=== PATIENT | female | born 1975 | race American Indian/Alaskan Native ===

== ENCOUNTER 2016-04-30 11:54 | Emergency (ER) | payer MEDICAID ==
[2016-04-30 12:31] VITALS: BP 134/79
== END 2016-04-30 17:51 | disposition left against medical advice (07) ==
LOC: ED 11:54
DX: R21 Rash and other nonspecific skin eruption (principal); Z53.21 Procedure and treatment not carried out due to patient leaving prior to being seen by health care provider

== ENCOUNTER 2016-05-11 09:48 | Emergency (ER) | payer MEDICAID ==
--- NOTE | 2016-05-11 12:18 | Emergency Department Report ---
ED Fall HPI - General Chief Complaint: Fall Stated Complaint: FALL/ LT KNEE PAIN/RT UPPER ABD PAIN DUE TO FALL Time Seen by Provider: 05/11/16 11:50 Source: patient Mode of arrival: Ambulatory - History of Present Illness Initial Comments: Patient here reported that she fell at home last night. She said that she was moving a night stand up stairs and tripped and fell on the nightstand. Complaining the pain in her right anterior chest area. Also complaining the left knee pain. Pain is 6-7 out of 10. Denies any head injury or loss of consciousness. Denies any back pain or abdominal pain. No [id number] medication taken. MD Complaint: fall -: Last night Fall From: from height (distance) (2 steps) When Fall Occurred: # days [employer] (16 hrs) Fall Witnessed: no Place Fall Occurred: home Loss of Consciousness: none Prolonged Down Time?: no Symptoms Prior to Fall: none Location: chest (distally at rib cage, rt) Location - Extremities: Right: Knee (Pain) Severity: moderate Severity scale (0 -10): 7 Quality: aching Context: tripped/slipped Associated Symptoms: denies: headache, neck pain, numbness, weakness, chest paint, shortness of breath, abdominal pain, hematuria, unable to walk, lightheaded, vertigo, confusion - Related Data Previous Rx's Medication Instructions Recorded Last Taken Type HYDROcodone/APAP 5-325 [Winslow 1 each PO Q6HR PRN #12 tablet 05/11/16 Unknown Rx 5/325] Ibuprofen [Motrin] 600 mg PO Q8H PRN #15 tablet 05/11/16 Unknown Rx Allergies Allergy/AdvReac Type Severity Reaction Status Date / Time No Known Allergies Allergy Unverified 04/30/16 12:26 ED Review of Systems ROS: Stated complaint: FALL/ LT KNEE PAIN/RT UPPER ABD PAIN DUE TO FALL Other details as noted in HPI Comment: All other systems reviewed and negative Constitutional: denies: chills, fever Respiratory: no symptoms reported Cardiovascular: denies: chest pain, palpitations, edema, syncope Gastrointestinal: denies: abdominal pain, nausea, vomiting Musculoskeletal: arthralgia, other (Pain rt distal rib cage). denies: back pain , joint swelling Skin: denies: rash Neurological: denies: headache, numbness, paresthesias, abnormal gait, vertigo ED Past Medical Hx - Past Medical History Previous Medical History?: No - Surgical History Past Surgical History?: Yes Additional Surgical History: Hernia repair x 3, x 3, Right foot surgery - Family History Family history: hypertension - Social History Smoking Status: Never Smoker Substance Use Type: Alcohol, Prescribed - Medications Home Medications: Home Medications Medication Instructions Recorded Confirmed Last Taken Type HYDROcodone/APAP 5-325 [Winslow 1 each PO Q6HR PRN #12 tablet 05/11/16 Unknown Rx 5/325] Ibuprofen [Motrin] 600 mg PO Q8H PRN #15 tablet 05/11/16 Unknown Rx ED Physical Exam - General Limitations: No Limitations General appearance: alert, in no apparent distress - Head Head exam: Present: atraumatic, normocephalic, normal inspection - Eye Eye exam: Present: normal appearance, PERRL, EOMI. Absent: periorbital swelling , periorbital tenderness Pupils: Present: normal accommodation - ENT ENT exam: Present: normal exam - Neck Neck exam: Present: normal inspection, full ROM, other (supple). Absent: tenderness, meningismus, lymphadenopathy - Expanded Neck Exam Expanded Neck exam: Absent: tenderness, midline deformity, anterior neck swelling, tracheal deviation - Respiratory Respiratory exam: Present: normal lung sounds bilaterally. Absent: respiratory distress, chest wall tenderness - Cardiovascular Cardiovascular Exam: Present: regular rate, normal rhythm, normal heart sounds - GI/Abdominal GI/Abdominal exam: Present: soft, normal bowel sounds. Absent: distended, tenderness, guarding, rebound, rigid - Extremities Exam Extremities exam: Present: normal inspection, full ROM, tenderness (left anterior knee), normal capillary refill. Absent: pedal edema, joint swelling, calf tenderness - Expanded Lower Extremity Exam Left Hip exam: Present: normal inspection, full ROM, pelvic stability. Absent: tenderness, swelling, abrasion, laceration, ecchymosis, deformity, crepidus, dislocation, erythema, external rotation, internal rotation, shortening Upper Leg exam: Present: normal inspection, full ROM. Absent: tenderness, swelling, abrasion, laceration, ecchymosis, deformity, crepidus, dislocation, erythema Knee exam: Present: normal inspection, full ROM, tenderness (tender to palpate left anterior knee), full knee extension. Absent: swelling, abrasion, laceration, ecchymosis, deformity, crepidus, dislocation, erythema, effusion, pain w/ pronation/supination, posterior draw sign, pain/laxity with valgus, pain /laxity with varus Lower Leg exam: Present: normal inspection, full ROM. Absent: tenderness, swelling, abrasion, laceration, ecchymosis, deformity, crepidus, dislocation, erythema, palpable cord, Funmi's sign Ankle exam: Present: normal inspection, full ROM. Absent: tenderness, swelling , abrasion, laceration, ecchymosis, deformity, crepidus, dislocation, erythema Foot/Toe exam: Present: normal inspection, full ROM. Absent: tenderness, swelling, abrasion, laceration, ecchymosis, deformity, crepidus, dislocation, erythema, amputation, puncture wound, foreign body, calcaneal tenderness, tenderness at base of 5th metatarsal, nail avulsion, subungual hematoma Neuro vascular tendon exam: Present: no vascular compromise. Absent: pulse deficit, abnormal cap refill, motor deficit, sensory deficit, tendon deficit, extremity cold to touch, pallor, abnormal 2-point discrimination, decreased fine /light touch, foot drop, peroneal nerve deficit, significant pain with passive ROM of distal joint Gait: Positive: observed and normal - Back Exam Back exam: Present: normal inspection, full ROM. Absent: tenderness, CVA tenderness (R), CVA tenderness (L), muscle spasm, paraspinal tenderness, vertebral tenderness, rash noted - Neurological Exam Neurological exam: Present: alert, oriented X3, normal gait, reflexes normal. Absent: motor sensory deficit - Psychiatric Psychiatric exam: Present: normal affect, normal mood - Skin Skin exam: Present: warm, dry, intact, normal color. Absent: rash ED Course Vital Signs 05/11/16 10:39 Temperature 97.9 F Pulse Rate 74 Respiratory 18 Rate Blood Pressure 124/82 O2 Sat by Pulse 100 Oximetry - Reevaluation(s) Reevaluation #1: 05/11/16 12:38 Patient given Motrin 800 mg in emergency room. She is awaiting x-rays. ED Medical Decision Making - Radiology Data Radiology results: image reviewed interpreted by me: X-ray of right ribs with PA chest revealed no acute fracture or dislocation and no pneumothorax. Ribs appear normal. X-ray of left knee reveals no acute fracture or dislocation. - Medical Decision Making ED course: I Discussed the patient that her x-rays were negative and I'll manage her pain with pain medication. Also explained to her that she has to cough and take deep breaths every 3-4 hours to prevent her lab from collapsing. Patient was understanding of discharge instruction discharged home with prescription for Motrin and Winslow.. Critical care attestation.: If time is entered above; I have spent that time in minutes in the direct care of this critically ill patient, excluding procedure time. ED Disposition Clinical Impression: Rib pain on right side Accidental fall Qualifiers: Encounter type: initial encounter Qualified Code(s): W19.XXXA - Unspecified fall, initial encounter Knee pain, left Qualifiers: Chronicity: acute Qualified Code(s): M25.562 - Pain in left knee Disposition: DISCHARGED TO HOME OR SELFCARE Is pt being admited?: No Does the pt Need Aspirin: No Condition: Stable Instructions: Arthralgia (ED), Fall Prevention (ED), Thoracic Pain (ED) Additional Instructions: Please breathing or cough every 3-4 hours. Do Not take narcotics while driving or operating heavy machinery as narcotic will cause drowsiness. Prescriptions: HYDROcodone/APAP 5-325 [Winslow 5/325] 1 each PO Q6HR PRN #12 tablet PRN Reason: Pain Ibuprofen [Motrin] 600 mg PO Q8H PRN #15 tablet PRN Reason: Pain Referrals: PRIMARY CARE, [Primary Care Provider] - 2-3 Days [facility] [Outside] - 2-3 Days Forms: Work/School Release Form(ED), Accompanied Note
[2016-05-11] MEDS ORDERED: MOTRIN PO ONE (12:20)
[2016-05-11 14:01] VITALS: BP 126/78
--- NOTE | 2016-05-11 14:19 | XRay Report ---
Left knee 3 views: History: Fall with left knee pain. Findings: No bony or articular abnormality. No fracture or dislocation. Suspicion of minimal joint effusion. Impression: No evidence of acute fracture.
--- NOTE | 2016-05-11 14:20 | XRay Report ---
Left ribs 2 views: History: Fall with left rib injury. Findings: No fracture or lytic lesion. Impression: No evidence of acute fracture.
== END 2016-05-11 14:00 | disposition home or self-care (01) ==
LOC: ED 09:48
DX: R07.81 Pleurodynia (principal); M25.562 Pain in left knee; W19.XXXA Unspecified fall, initial encounter; Y93.89 Activity, other specified; Y99.8 Other external cause status; Y92.009 Unspecified place in unspecified non-institutional (private) residence as the place of occurrence of the external cause

== ENCOUNTER 2017-05-19 18:49 | Emergency (ER) | payer MEDICAID, OTHER ==
[2017-05-19 20:44] LABS: Hemoglobin 11.9 gm/dl (10.1-14.3); Mean Corpuscular HGB Conc 32 % (30-34); Mean Corpuscular Volume 72 fl (79-97); Platelet Count 207 K/mm3 (140-440); Red Blood Count 5.14 M/mm3 (3.65-5.03); Red Cell Distribution Width 15.1 % (13.2-15.2)
[2017-05-19 20:45] LABS: Mean Corpuscular Hemoglobin 23 pg (28-32)
[2017-05-19 20:56] LABS: BUN/Creatinine Ratio 16; Blood Urea Nitrogen 8 mg/dL (7-17); Calcium 8.8 mg/dL (8.4-10.2); Hemolysis Index 5
--- NOTE | 2017-05-19 21:01 | Cat Scan Report ---
FINAL REPORT EXAM: CT HEAD/BRAIN WO CON HISTORY: syncope and severe headache TECHNIQUE: Standard unenhanced CT of the head at 5.0 millimeter axial increments. PRIORS: None. FINDINGS: The ventricular system is normal in size and configuration. There is no evidence for parenchymal volume loss. There is no evidence for mass lesion, mass effect, midline shift, acute intracranial hemorrhage, or acute ischemia/ infarction. Visualized paranasal sinuses demonstrates extensive mucosal thickening throughout the maxillary, sphenoid, and ethmoid sinuses suggesting chronic sinusitis. IMPRESSION: chronic pansinusitis. No acute intracranial process noted.
[2017-05-19 22:42] LABS: Bacteria,Urine 3+ /HPF (Negative); Bilirubin,Urine NEG (Negative); Blood,Urine NEG (Negative); Color,Urine Yellow (Yellow); Mucus,Urine FEW /HPF
[2017-05-19] MEDS ORDERED: TYLENOL ONE (23:35)
[2017-05-19] MEDS ORDERED: TYLENOL PO ONE (23:36)
--- NOTE | 2017-05-20 02:38 | Emergency Department Report ---
ED Syncope HPI - General Chief Complaint: Syncope Stated Complaint: HEADACHE WITH N/V Time Seen by Provider: 05/20/17 02:11 Source: patient, family Exam Limitations: no limitations - History of Present Illness Initial Comments: Patient reports that she had near syncopal episode at home today. Her family member reported the patient was kristina in bed and then she complained of feeling dizzy but she actually did not fall. She says she was feeling dizzy when she stood up. She says she had severe headache with nausea and vomiting. Patient states that she has a history of migraine and she is also stating that she is having chest pain with shortness of breath when this happened initially this morning but she hasn't had any shortness of breath since she came to the emergency room. Patient denies any history of blood clot in her family or personally. Denies any recent long distant travel by airplane and her car for more than 3 hours. Denies any swelling to her legs. Denies being on control. Denies any recent history of treatment for cancer or history of cancer. Denies any recent convalescent. Denies any recent history of splinting or casting to her extremities. She reports that chest pain is at 7 out of 10 and headache was a 10 out of 10. Pain achy pain to chest located to the mid chest and headache is located to the frontal head. She also reports some cold symptoms. Denies any cardiac related history of chest pain. Nothing makes pain better and nothing makes it worse. No medication taken prior to coming to the emergency room. Denies any abdominal pain. Denies any back pain or neck pain or stiffness. Denies any fever or chills. Denies any urinary burning frequency or urgency. Patient has a history of bilateral tubal ligation 2 which she said she got on the first time that she got her TMs tied. Last menstrual period was 04/05/2016 and she says she is irregular. Timing/Prior Episodes: no prior history, single episode today Precipitating Factors: Positive: lightheadedness, nausea, pain. Negative: blurred vision, confusion, diaphoresis, injury, recent head trauma, rapid heart beat Context: sitting Episode Description: family report that patient was in bed when she felt lightheaded/no fainting Current Symptoms: chest pain, dizziness, headache, lightheadedness, nausea. denies: blurred vision, diaphoresis, injury, loss of bladder control, loss of bowel control, motionless, pale, shallow/rapid breathing, weak/absent pulse, weakness - Related Data Allergies/Adverse Reactions: Allergies No Known Allergies Allergy (Verified 05/19/17 23:40) Home Medications: Ambulatory Orders HYDROcodone/APAP 5-325 [[place] 5/325] 1 each PO Q6HR PRN #12 tablet 05/11/16 Cetirizine HCl [ZyrTEC] 10 mg PO QAM 14 Days #14 capsule 05/20/17 Fluticasone [Flonase] 1 spray NS QDAY 14 Days #1 bottle 05/20/17 Ibuprofen [Motrin 600 MG tab] 600 mg PO Q8H PRN #15 tablet 05/20/17 Levofloxacin [Levaquin] 750 mg PO QDAY 9 Days #9 tablet 05/20/17 Ondansetron [Zofran Odt] 4 mg PO Q8H PRN #15 tab.rapdis 05/20/17 ED Review of Systems ROS: Stated complaint: HEADACHE WITH N/V Other details as noted in HPI Comment: All other systems reviewed and negative Constitutional: no symptoms reported ENT: congestion. denies: ear pain, throat pain, dental pain, hearing loss, epistaxis Respiratory: no symptoms reported Cardiovascular: chest pain, other (lightheaded and near-syncope). denies: palpitations, dyspnea on exertion, orthopnea, edema, syncope, paroxysmal nocturnal dyspnea Gastrointestinal: nausea, vomiting. denies: abdominal pain, diarrhea, constipation, hematemesis, melena, hematochezia Genitourinary: denies: urgency, dysuria, frequency, hematuria, discharge Musculoskeletal: denies: back pain, joint swelling, arthralgia, myalgia Skin: denies: rash Neurological: headache, other (dizziness). denies: weakness, numbness, paresthesias, confusion, abnormal gait ED Past Medical Hx - Past Medical History Previous Medical History?: Yes Hx Headaches / Migraines: Yes Additional medical history: tubiligation x2 - Surgical History Past Surgical History?: Yes Additional Surgical History: Hernia repair x 3, x 3, Right foot surgery - Family History Family history: hypertension - Social History Smoking Status: Never Smoker Substance Use Type: None - Medications Home Medications: Home Medications Medication Instructions Recorded Confirmed Last Taken Type HYDROcodone/APAP 5-325 [[place] 1 each PO Q6HR PRN #12 tablet 05/11/16 Unknown Rx 5/325] Cetirizine HCl [ZyrTEC] 10 mg PO QAM 14 Days #14 capsule 05/20/17 Unknown Rx Fluticasone [Flonase] 1 spray NS QDAY 14 Days #1 bottle 05/20/17 Unknown Rx Ibuprofen [Motrin 600 MG tab] 600 mg PO Q8H PRN #15 tablet 05/20/17 Unknown Rx Levofloxacin [Levaquin] 750 mg PO QDAY 9 Days #9 tablet 05/20/17 Unknown Rx Ondansetron [Zofran Odt] 4 mg PO Q8H PRN #15 tab.rapdis 05/20/17 Unknown Rx ED Physical Exam - General Limitations: No Limitations General appearance: alert, in no apparent distress - Head Head exam: Present: atraumatic, normocephalic, normal inspection - Expanded Head Exam Expanded Head exam: Absent: laceration, abrasion, contusion, hematoma, racoon eyes, roberson's sign, general tenderness, tenderness of temporal artery, CSF rhinorrhea , CSF otorrhea - Eye Eye exam: Present: normal appearance, PERRL, EOMI. Absent: conjunctival injection, nystagmus, periorbital swelling, periorbital tenderness Pupils: Present: normal accommodation - ENT ENT exam: Present: normal orophraynx, mucous membranes moist, normal external ear exam, other (lateral frontal and maxillary sinuses tender to palpate). Absent: TM's normal bilaterally (bilateral TM congested without erythema) - Neck Neck exam: Present: normal inspection, full ROM, other (C-spine tenderness). Absent: tenderness, meningismus, lymphadenopathy, thyromegaly - Respiratory Respiratory exam: Present: normal lung sounds bilaterally. Absent: respiratory distress, chest wall tenderness, accessory muscle use - Cardiovascular Cardiovascular Exam: Present: regular rate, normal rhythm, normal heart sounds. Absent: systolic murmur, diastolic murmur - GI/Abdominal GI/Abdominal exam: Present: soft, normal bowel sounds. Absent: distended, tenderness, guarding, rebound, rigid, organomegaly, mass, bruit, pulsatile mass , hernia - Extremities Exam Extremities exam: Present: normal inspection, full ROM, normal capillary refill , other (no clubbing, cyanosis or edema. +2 pulses to all extremities and no neurovascular compromise). Absent: tenderness, pedal edema, joint swelling, calf tenderness - Back Exam Back exam: Present: normal inspection, full ROM, other (ambulates without any difficulties.). Absent: tenderness, CVA tenderness (R), CVA tenderness (L), muscle spasm, paraspinal tenderness, vertebral tenderness, rash noted - Neurological Exam Neurological exam: Present: alert, oriented X3, normal gait, reflexes normal. Absent: motor sensory deficit - Expanded Neurological Exam Expanded Neurological exam: Absent: innattentive, memory loss-remote event, memory loss- recent event, ataxia, receptive aphasia, expressive aphasia, total aphasia, tremor, protecting the airway Patient oriented to: Present: person, place, time Speech: Present: fluid speech Cranial nerves: EOM's Intact: Normal, Gag Reflex: Normal, Tongue Deviation: Normal, Nystagmus: Normal, Facial Sensation: Normal, Facial Palsy with Forehead Movement: Normal, Facial Palsy without Forehead Movement: Normal Cerebellar function: Romberg: Normal Upper motor neuron: Pronator Drift: Normal, Sensory Extinction: Normal Sensory exam: Upper Extremity Light Touch: Normal, Upper Extremity Temperature: Normal, UE 2 Point Discrimination: Normal, Lower Extremity Light Touch: Normal, Lower Extremity Temperature: Normal, LE 2 Point Discrimination: Normal Motor strength exam: RUE: 5, LUE: 5, RLE: 5, LLE: 5 DTR: bicep (R): 2+, bicep (L): 2+, tricep (R): 2+, tricep (L): 2+, knee (R): 2+ , knee (L): 2+, ankle (R): 2+, ankle (L): 2+ Best Eye Response (Chidester): (4) open spontaneously Best Motor Response (Chidester): (6) obeys commands Best Verbal Response (Neymar): (5) oriented Neymar Total: 15 - Psychiatric Psychiatric exam: Present: normal affect, normal mood - Skin Skin exam: Present: warm, dry, intact, normal color. Absent: rash ED Course Vital Signs 05/19/17 05/19/17 20:14 23:37 Temperature 98.9 F Pulse Rate 67 Respiratory 18 18 Rate Blood Pressure 139/93 O2 Sat by Pulse 100 Oximetry Vital Signs 05/19/17 05/19/17 05/20/17 20:14 23:37 04:42 Temperature 98.9 F 98.7 F Pulse Rate 67 56 L Respiratory 18 18 16 Rate Blood Pressure 139/93 Blood Pressure 121/79 [Right] O2 Sat by Pulse 100 100 Oximetry - Reevaluation(s) Reevaluation #1: 05/20/17 02:20 Patient received Tylenol 650 mg in triage area upon arrival to the emergency room. Reevaluation #2: 05/20/17 04:41 She received IV fluid 1 L, Zofran 8 mg IV and Toradol 30 mg IV. Urinalysis positive for nitrites, bacteria and some protein but no ketones. Urine culture sent and pending. Urine test is negative BMP is stable and troponin is normal range. CBC is within normal limits. EKG sinus bradycardia at 48 bpm and patient reports that her heart rate is low at times. She does not have any acute ST findings. CT scan of the head revealed chronic pansinusitis without any acute intracranial processes. Patient is able to ambulate and feels better after IV fluid. She is no longer having lightheadedness, no longer dizzy. She is not having any nausea or vomiting. Chest pain has resolved and she does not have any shortness of breath. ED Medical Decision Making - Lab Data Result diagrams: 05/19/17 20:34 05/19/17 20:34 Lab Results 05/19/17 05/19/17 05/19/17 Range/Units 20:34 20:34 22:07 WBC 9.0 (4.5-11.0) K/mm3 RBC 5.14 H (3.65-5.03) M/mm3 Hgb 11.9 (10.1-14.3) gm/dl Hct 37.0 (30.3-42.9) % MCV 72 L (79-97) fl MCH 23 L (28-32) pg MCHC 32 (30-34) % RDW 15.1 (13.2-15.2) % Plt Count 207 (140-440) K/mm3 Sodium 139 (137-145) mmol/L Potassium 3.7 (3.6-5.0) mmol/L Chloride 101.0 (98-107) mmol/L Carbon Dioxide 26 (22-30) mmol/L Anion Gap 16 mmol/L BUN 8 (7-17) mg/dL Creatinine 0.5 L (0.7-1.2) mg/dL Estimated GFR > 60 ml/min BUN/Creatinine Ratio 16 % Glucose 98 (65-100) mg/dL Calcium 8.8 (8.4-10.2) mg/dL Troponin T < 0.010 (0.00-0.029) ng/mL Urine Color Yellow (Yellow) Urine Turbidity Clear (Clear) Urine pH 5.0 (5.0-7.0) Ur Specific [place] 1.026 (1.003-1.030) Urine Protein 30 mg/dl (Negative) mg/dL Urine Glucose (UA) Neg (Negative) mg/dL Urine Ketones Neg (Negative) mg/dL Urine Blood Neg (Negative) Urine Nitrite Pos (Negative) Urine Bilirubin Neg (Negative) Urine Urobilinogen 4.0 (<2.0) mg/dL Ur Leukocyte Esterase Neg (Negative) Urine WBC (Auto) 4.0 (0.0-6.0) /HPF Urine RBC (Auto) 3.0 (0.0-6.0) /HPF U Epithel Cells (Auto) 1.0 (0-13.0) /HPF Urine Bacteria (Auto) 3+ (Negative) /HPF Urine Mucus Few /HPF Urine HCG, Qual (Negative) 05/20/17 Range/Units Unknown WBC (4.5-11.0) K/mm3 RBC (3.65-5.03) M/mm3 Hgb (10.1-14.3) gm/dl Hct (30.3-42.9) % MCV (79-97) fl MCH (28-32) pg MCHC (30-34) % RDW (13.2-15.2) % Plt Count (140-440) K/mm3 Sodium (137-145) mmol/L Potassium (3.6-5.0) mmol/L Chloride (98-107) mmol/L Carbon Dioxide (22-30) mmol/L Anion Gap mmol/L BUN (7-17) mg/dL Creatinine (0.7-1.2) mg/dL Estimated GFR ml/min BUN/Creatinine Ratio % Glucose (65-100) mg/dL Calcium (8.4-10.2) mg/dL Troponin T (0.00-0.029) ng/mL Urine Color (Yellow) Urine Turbidity (Clear) Urine pH (5.0-7.0) Ur Specific [place] (1.003-1.030) Urine Protein (Negative) mg/dL Urine Glucose (UA) (Negative) mg/dL Urine Ketones (Negative) mg/dL Urine Blood (Negative) Urine Nitrite (Negative) Urine Bilirubin (Negative) Urine Urobilinogen (<2.0) mg/dL Ur Leukocyte Esterase (Negative) Urine WBC (Auto) (0.0-6.0) /HPF Urine RBC (Auto) (0.0-6.0) /HPF U Epithel Cells (Auto) (0-13.0) /HPF Urine Bacteria (Auto) (Negative) /HPF Urine Mucus /HPF Urine HCG, Qual Negative (Negative) Urine culture pending - EKG Data EKG shows normal: sinus rhythm Rate: bradycardia (48 bpm) - EKG Data Interpretation: no acute changes - Radiology Data Radiology results: report reviewed CT scan of the head reveals no acute intracranial findings but findings were chronic pansinusitis. Patient with extensive mucosal thickening throughout the maxillary, sphenoid and ethmoid sinuses suggested chronic sinusitis - Medical Decision Making Collaborating with Dr. Eduardo and patient presentation and clinical findings , diagnostic and laboratory findings. He agreed with treatment plan ED course: She is here with her family reports lightheadedness while laying in bed. It was documented on triage note the patient had syncopal episode but patient denies this. She said she got up and she felt lightheaded and felt faintish but she had not fainted. She reports headache frontally, nausea and vomiting. Brief period of shortness of breath at home and chest pain. Laboratory findings included CMP, BMP, troponin were all within normal limits. Urinalysis revealed patient with positive nitrite, some protein and positive bacteria. Patient with urinary tract infection. CT scan also showed a patient without any acute intracranial findings but patient with extensive mucosal coastal thickness and in her sinuses and suggests pansinusitis. Urine test is negative. EKG reveals sinus bradycardia at 48 bpm without any acute ST abnormality. Patient heart rate score is low,PERC rule and wells criteria suggest no need for further diagnostic studies due to severe risk for pulmonary embolism. Patient physical findings for tenderness to palpate her sinuses, nasal congestion and bilateral TM congestion. She has no urinary symptoms with urinary tract infection. I discussed laboratory findings and CT findings the patient along with diagnosis and treatment plan and she voiced understanding. Patient was given Tylenol 650 mg in triage area for headache and chest pain. She was further given a liter of IV fluid normal saline, Zofran 8 mg IV, Toradol 30 mg IV. Patient is able to ambulate without any difficulties. She is without any chest pain, shortness of breath, nausea or vomiting or headache. She says she is feeling better. Patient given her first dose of Levaquin to cover sinus infection and urinary tract infection. I discussed with her to start next dose tomorrow morning which is 05/21/2017. Patient primary care physician is Dr. Pace she says she has an appointment with on 06/01/2017 and I suggested to her to call in the morning to get an earlier appointment for follow-up visit. Patient discharged home with prescription for Levaquin, Zyrtec, Flonase, Zofran and Motrin. Her vital signs are stable and she is afebrile. Critical care attestation.: If time is entered above; I have spent that time in minutes in the direct care of this critically ill patient, excluding procedure time. ED Disposition Clinical Impression: Acute cystitis without hematuria, Dizziness, Atypical chest pain Pansinusitis Qualifiers: Chronicity: unspecified Qualified Code(s): J32.4 - Chronic pansinusitis Headache Qualifiers: Headache type: unspecified Headache chronicity pattern: acute headache Intractability: not intractable Qualified Code(s): R51 - Headache Nausea and vomiting Qualifiers: Vomiting type: unspecified Vomiting Intractability: non-intractable Qualified Code(s): R11.2 - Nausea with vomiting, unspecified Disposition: DC-01 TO HOME OR SELFCARE Is pt being admited?: No Does the pt Need Aspirin: No Condition: Stable Instructions: Chest Pain (ED), Sinusitis (ED), Dizziness (ED), Acute Nausea and Vomiting (ED), Near Syncope (ED), Acute Headache (ED), Urinary Tract Infection in Women (ED) Additional Instructions: Please follow up with Dr. Pace your primary care physician call this morning to schedule an appointment. Please see neurology referral for migraine headaches. Follow up with [facility] for atypical chest pain. See details on referral and discharge instruction paperwork Takes Zyrtec and Flonase for congestion Take Levaquin to start on 05/21/2017 for urinary tract infection and sinus infection. He received her first dose on 05/20/2017. Takes Zofran for nausea and/or vomiting Take Motrin for headache. Please make sure that you drink plenty of fluids If any a few symptoms recur, return to the emergency room otherwise follow-up via primary care physician Prescriptions: Cetirizine HCl [ZyrTEC] 10 mg PO QAM 14 Days #14 capsule Fluticasone [Flonase] 1 spray NS QDAY 14 Days #1 bottle Ibuprofen [Motrin 600 MG tab] 600 mg PO Q8H PRN #15 tablet PRN Reason: Pain Levofloxacin [Levaquin] 750 mg PO QDAY 9 Days #9 tablet Ondansetron [Zofran Odt] 4 mg PO Q8H PRN #15 tab.rapdis PRN Reason: Nausea And Vomiting Referrals: PRIMARY CARE, [Primary Care Provider] - 05/21/17 DONNA PINEDA MD [Staff Physician] - 2-3 Days RAQUEL DAVIDSON MD [Staff Physician] - 2-3 Days Forms: Accompanied Note, Work/School Release Form(ED)
[2017-05-20] MEDS ORDERED: TORADOL IV ONE (03:30)
[2017-05-20] MEDS ORDERED: ZOFRAN IV ONE (03:30)
[2017-05-20] MEDS ORDERED: NACL 0.9% 1000 ML 1,000 ML IV ONE (03:30)
[2017-05-20 03:59] LABS: HCG Qualitative,Urine Negative (Negative)
[2017-05-20] MEDS ORDERED: LEVAQUIN PO ONE (04:02)
[2017-05-20 04:43] VITALS: BP 121/79
== END 2017-05-20 05:25 | disposition home or self-care (01) ==
LOC: ED 18:49
DX: R42 Dizziness and giddiness (principal); J32.4 Chronic pansinusitis; N30.00 Acute cystitis without hematuria; R07.89 Other chest pain; G43.909 Migraine, unspecified, not intractable, without status migrainosus; Z98.51 Tubal ligation status
CPT/HCPCS: 36415; 70450; 80048; 81001; 81025; 84484; 85027; 87086; 93005; 93010; 96361; 96374; 96375; 99284; J1885; J2405; J7030